=== PATIENT | female | born 1945 | race Caucasian/White ===

== ENCOUNTER 2022-02-01 08:41 | Emergency (ER) | payer MEDICARE, BC, SELFPAY ==
--- NOTE | ~2022-02-01 | CT_ITS ---
EXAMINATION: CT abdomen pelvis w con DATE: 02/01/2022 09:46 INDICATION: Left upper quadrant abdominal pain, nausea. Recent bile duct stent. TECHNIQUE: Computed tomography (CT) of the abdomen and pelvis was performed with 100 CC Omnipaque 300 intravenous contrast. Automated exposure control and iterative reconstruction technique were employe d. Exam dose: 405.04 mGy-cm total exam DLP. COMPARISON: None. FINDINGS: There is bibasilar discoid atelectasis//or scarring. Elevation of the right diaphragm. Cardiomegaly. No pericardial effusion. Small bilateral pleural effusions. Occasional hepatic and numerous splenic calcified granulomas consistent with old granulomatous diseas e. There is pneumobilia. Status post cholecystectomy. No hepatic, splenic, pancreatic or adrenal space-occupying mass lesion is detected. Bile duct and pancreatic duct stents are noted. There is peripancreatic fluid and fat soft tissue infiltration suggesting pancreatitis. 9 mm right renal cyst. Parapelvic left renal cyst. No urinary tract calculus or hydroureteronephrosis is evident. The uterus, adnexal areas and urinary bladder are essentially unremarkable although some what obscured by streak artifact from right hip replacement. There is a pigtail catheter in the subcutaneous soft tissues in the right inguinal area, immediately anterior to a nonspecific approximately 2.4 x 4 cm right inguinal fluid collection. Differential diag nosis includes hematoma, seroma, abscess. Pseudoaneurysm is also a consideration. Normal appendix. Diverticulosis of the sigmoid colon; no evidence of diverticulitis. No bowel obstruc tion, bowel wall thickening, pneumatosis or intraperitoneal free air is evident. There is atherosclerotic calcification but normal caliber of the abdominal aorta and iliac arteries. No intraperitoneal or retroperitoneal or pelvic mass lesion or adenopathy or ascites. Moderately severe degenerative disc disease at L2-3. Severe degenerative disc disease and mild anterolisthesis at L4-5. Moderately severe degenerative disc disease at L5-S1. Osteopenia. No suspicious osteolytic or osteoblastic lesions are identified. Status post right total hip arthroplasty. Left hip osteoarthritis. IMPRESSION: Status post cardiac valve replacement Cardiomegaly Small bilateral pleural effusions Status post cholecystectomy. Bile ducts and pancreatic duct stents Pneumobilia Renal cysts Diverticulosis of the sigmoid colon Pigtail catheter in right inguinal subcutaneous fat, immediately anterior to a nonspecific approximat mariama 2.4 x 4 summary right inguinal fluid collection Reviewed, dictated and finalized at [facility]. Reviewed, dictated and finalized at location B. IMPRESSION: Status post cardiac valve replacement Cardiomegaly Small bilateral pleural effusions Status post cholecystectomy. Bile ducts and pancreatic duct stents Pneumobilia Renal cysts Diverticulosis of the sigmoid colon Pigtail catheter in right inguinal subcutaneous fat, immediately anterior to a nonspecific approximately 2.4 x 4 summary right inguinal fluid collection
--- NOTE | ~2022-02-01 | XR_ITS ---
XR chest 2V DATE: 02/01/2022 09:44 INDICATION: Shortness of breath. Heart valve replacement 4 weeks ago. TECHNIQUE: AP and lateral views COMPARISON: 03/13/2005 portable AP chest FINDINGS: Postoperative change of cardiac valve replacement. There are elevation of the right diaphragm and mild atelectasis or scarring in the right lower lung. The left lung appears clear. No pleural effusion or pulmonary vascular congestion or pneumothorax. Cardiomegaly. Aortic calcification and tortuosity. Diffuse osteopenia. Levoscoliosis of the upper thoracic spine and dextroscoliosis of the lower thoracic spine. IMPRESSION: Status post cardiac valve replacement Cardiomegaly Aortic atherosclerosis Moderate elevation right diaphragm Mild infiltrate, atelectasis or scarring in the right lower lung Reviewed, dictated and finalized at location B.
[2022-02-01 08:50] VITALS: BP 110/67; PULSE 108; RESP 30; TEMP 36.3; O2SAT 100
--- NOTE | 2022-02-01 08:56 | ECG_ITS ---
Measurements Intervals [place] Rate: 111 P: 79 KS: 151 QRS: -48 QRSD: 89 T: 105 QT: 336 QTc: 458 Interpretive Statements SINUS TACHYCARDIA ATRIAL AND VENTRICULAR PREMATURE COMPLEXES LEFT ANTERIOR FASCICULAR BLOCK BORDERLINE ST-T WAVE ABNORMALITY- ANTEROLAT/HIGH LAT LEADS BASELINE ARTIFACT- I, II, III ABNORMAL ECG Electronically Signed On 02-01-2022 9:07:27 CDT by Lalo Musa D.O.
[2022-02-01 09:14] LABS: Basophils Percent Auto 0.1 % (0.2-1.2); Eosinophils Percent Auto 0.4 % (0-4.4); Hematocrit 33.3 % (37.0-47.0); Hemoglobin 10.2 g/dL (12.0-15.0); Immature Granulocyte Absolute 0.04 K/mm3 (0.00-0.031); Immature Granulocyte Percent A 0.5 % (0-0.5); Lymphocytes Absolute Auto 0.95 K/mm3 (0.9-3.2); Lymphocytes Percent Auto 12.7 % (18.3-44.2); Mean Corpuscular HGB Conc 30.6 g/dl (32-36); Mean Corpuscular Hemoglobin 29.8 pg (26-34); Mean Corpuscular Volume 97.4 fl (80-100); Mean Platelet Volume 9.6 fl (7.4-10.4); Monocytes Absolute Auto 0.8 K/mm3 (0.1-0.6); Monocytes Percent Auto 10.7 % (2.6-8.5); Neutrophils Absolute Auto 5.7 K/mm3 (1.3-6.7); Neutrophils Percent Auto 75.6 % (45.5-73.1); Platelet Count Result 372 k/mm3 (150-375); Red Blood Count 3.42 M/mm3 (4.2-5.4); Red Cell Distribution Width 17.1 % (11.5-14.5); White Blood Count 7.5 K/mm3 (4.5-10.0)
[2022-02-01 09:24] LABS: Alanine Aminotransferase 19 U/L (6-35); Albumin Level 4.1 g/dL (3.5-5.1); Alkaline Phosphatase 256 U/L (38-126); Anion Gap 7 mmol/L (8-16); Aspartate Amino Transferase 41 U/L (14-36); Bilirubin,Total 0.4 mg/dL (0.2-1.3); Blood Urea Nitrogen 25 mg/dL (7-17); Calcium 9.5 mg/dL (8.4-10.2); Carbon Dioxide 28 mmol/L (22-30); Chloride 102 mmol/L (98-107); Estimated CRCL calculation 39 ml/min; Estimated Glomerular Filt Rate 54; Glucose 97 mg/dL (65-110); Lipase 144 U/L (23-300); Potassium 4.5 mmol/L (3.4-5.0); Sodium 137 mmol/L (137-145)
[2022-02-01 09:31] VITALS: BP 104/81; PULSE 106; RESP 34; O2SAT 100
--- NOTE | 2022-02-01 10:00 | PC.NURSE ---
Pt states I went to the bathroom right before i came so i can't go
[2022-02-01 10:45] VITALS: BP 105/87; PULSE 105; RESP 40; O2SAT 100
[2022-02-01] MEDS: ONDANSETRON INJ 4 MG/2 ML VIAL IV PUSH (11:17)
--- NOTE | 2022-02-01 11:43 | PC.NURSE ---
Per GEOVANNY Gagnon, no urine specimen needed.
--- NOTE | 2022-02-01 12:19 | ED.ABDPAIN ---
HPI - Abdominal Pain General Chief Complaint: Abdominal Pain Stated Complaint: nausea, abd pain Time Seen by Provider: 02/01/22 08:45 Source: patient and family Mode of arrival: ambulatory Limitations: no limitations History of Present Illness HPI narrative: 76-year-old with a history of hypertension, s/p mitral valve replacement, maze procedure for AF done recently at [facility] also developed obstructing gallstone for which she had biliary stent placed here with complaints of left upper quadrant pain associated with nausea. She states that she has shortness of breath for a long time however since surgery her breathing is little worse. Patient states that she had vocal cord paralysis after the procedure since then she feels little more short of breath. She denied any chest pain. No history of fever or chills. Daughter states that this pain started at about 4:00 this morning. Patient daughter states that they did not want to go to [place] emergency room as the wait is too long. She wanted to know what could be the cause of her left upper quadrant pain. She also states that she is scheduled to see her biliary surgeon this coming Tuesday for stent removal. MD elicited complaint: abdominal pain Pertinent past history: none Onset (ago): hour(s) (6) Location: LUQ Severity: moderate Quality: aching Radiation: LUQ Migration to: no migration Exacerbating factors: nothing Relieving factors: nothing Associated symptoms: denies other symptoms Related Data Home Medications Medication Instructions Recorded Confirmed apixaban 5 mg PO BID 01/12/22 01/12/22 aspirin 81 mg PO DAILY 01/12/22 01/12/22 atorvastatin 40 mg PO DAILY 01/12/22 01/12/22 desvenlafaxine 100 mg PO DAILY 01/12/22 01/12/22 docusate sodium [Colace] 100 mg PO DAILY PRN 01/12/22 01/12/22 melatonin 9 mg PO HS 01/12/22 01/12/22 thyroid (pork) [[place] Thyroid] 90 mg PO DAILY 01/12/22 01/12/22 Allergies Allergy/AdvReac Type Severity Reaction Status Date / Time No Known Allergies Allergy Mild Unverified 04/28/12 08:22 Review of Systems Review of Systems: All systems reviewed & are unremarkable except as noted in HPI and below Constitutional: Constitutional: Reports no additional constitutional complaints Eyes: Eyes: Reports no additional eye complaints ENT: Reports system reviewed and no additional complaints, except as documented Respiratory: Respiratory: Reports no additional respiratory complaints Gastrointestinal: Gastrointestinal: Reports as per HPI Musculoskeletal: Musculoskeletal: Reports no additional musculoskeletal complaints Neurologic: Reports system reviewed and no additional complaints, except as documented PMFSH Past Medical History Medical History Acute blood loss as cause of postoperative anemia Atrial fibrillation Brain aneurysm Brain TIA Chronic hypotension Depression Encephalopathy History of subarachnoid hemorrhage Hyperkalemia Hyperlipidemia Hypertension Mitral regurgitation and aortic stenosis Peripheral artery disease Surgical History Surgical History H/O maze procedure Mitral valve replaced Family History Family History Father Acute myocardial infarction Cerebrovascular accident Chronic obstructive pulmonary disease Hypertension Sibling Acute myocardial infarction Cerebrovascular accident Hypertension Mother Chronic obstructive pulmonary disease Gastric cancer Social History Social History Social History: she is a retired nurse from [employer]. She currently lives in [place] with her . She will return to her daughter's home in [facility] and eventually transition back to [place] Smoking status: Former smoker Exam Narrative: GENERAL: Well-appearing,thin ,anxious
[2022-02-01 12:32] VITALS: BP 123/78; PULSE 107; RESP 18; O2SAT 96
== END 2022-02-01 12:35 | disposition home or self-care (01) ==
PROVIDERS: Emergency Provider Family Medicine
DX: R10.12 Left upper quadrant pain (principal); I10 Essential (primary) hypertension; I48.91 Unspecified atrial fibrillation; E78.5 Hyperlipidemia, unspecified; I08.0 Rheumatic disorders of both mitral and aortic valves; I73.9 Peripheral vascular disease, unspecified; Z95.2 Presence of prosthetic heart valve; Z86.73 Personal history of transient ischemic attack (TIA), and cerebral infarction without residual deficits; Z79.01 Long term (current) use of anticoagulants; Z79.82 Long term (current) use of aspirin; Z87.891 Personal history of nicotine dependence; I51.7 Cardiomegaly; N28.1 Cyst of kidney, acquired; K57.30 Diverticulosis of large intestine without perforation or abscess without bleeding; I70.0 Atherosclerosis of aorta
CPT/HCPCS: 36415; 71046; 74177; 80053; 83690; 85025; 93005; 96374; 99284; J2405; Q9967

== ENCOUNTER 2022-02-25 12:30 | Outpatient (RCR) | payer MEDICARE, BC, SELFPAY ==
--- NOTE | 2022-01-26 13:49 | STOPEVAL ---
Thank you for referring La Nena Clark to [facility].? The patient is scheduled to be seen for therapy? 2x/week for 4 weeks. Please review, sign, date and return this plan of care JUAN JOSÉ. I agree with and certify that the following plan of care is medically necessary. Referring Physician Date Attending Provider: Elva Anthony DO Referring Provider: Elva Anthony DO Therapy Assessment Status Assessment Status Assessment Status Evaluation Outpatient Past Medical History Past Medical History Source of Past Medical History Patient,Family/Significant Other Neurological History Hx Neurological Disorders No Significant History Cardiovascular History Hx Valve Replacement Yes Respiratory History Hx Other Respiratory Disorders Yes: Short, shallow breaths Genitourinary History Hx Other Genitourinary Disorders Yes: s/p bile duct surgery Musculoskeletal History Hx Crutches or Walker Use Yes Query Text:If Yes, Enter Crutches, Walker, or Both in the Comment Evaluation Information Problem Diagnosis Left side vocal cord paralysis Onset 12/28/21 Cause Intubation Subjective Information Daughter, Blanquita, reported that Query Text:As Reported By Patient/ patient underwent mitral Family valve replacement and was intubated during the surgery however when she was extubated, patient was found to have difficulty voicing and this was determined to be caused by a paralyzed vocal cord. After extubation, she began to have clear liquid diet, eventually graduating to solid foods however she must continue to have nectar thick liquids to prevent penetration/aspiration. Patient's biggest complaint today is catching her breath. She states that her breathing is shallow and rapid and daughter reported that this has not improved over time. Daughter stated that her heart is working well and that her lungs are clear. She reported that patient's sleeping has been improving upon discharge from hospital/rehab. Daughter reports that patient's nurse practitioner will be following
--- NOTE | 2022-01-26 14:42 | OTOPEVAL ---
OCCUPATIONAL THERAPY INITIAL EVALUATION REPORT 01/26/22 Thank you for referring La Nena Clark to [facility].? The patient is scheduled to be seen for therapy? 2x/week for 4 weeks. Please review, sign, date and return this plan of care JUAN JOSÉ. I agree with and certify that the following plan of care is medically necessary. Referring Physician Date Referring Provider: Elva Anthony DO *OT Outpatient Evaluation Start: 01/26/22 13:30 Outpatient Past Medical History Past Medical History Source of Past Medical History Family/Significant Other Neurological History Hx Transient Ischemic Attacks (TIA) Yes: no residual Hx Other Neurological Disorders Yes: brain aneurysm s/p stenting and coil, fall 2020 Cardiovascular History Hx Atrial Fibrillation Yes: s/p maze procedure Hx Peripheral Vascular Disease Yes Hx Other Cardiac Disorders Yes: mitral valve regurgitation, hypotension Psychosocial History Hx Depression Yes Evaluation Information Diagnosis Presence of prosthetic heart valve Onset 12/28/21 Subjective Information Mitral valve replacement on Text:As Reported By Patient/ 01/15, 11 hour surgery. She was Family in the ICU x1 week, step down unit x1 week, and discharged to acute rehab 1.5 weeks. Her daughter is with her today and provides the history. She states she has been very immobile x7 weeks and is ready to get moving again. She is staying with her daughter right now. She is from [place], flew home to get the surgery at [facility]. Goal would be to regain independence to get back home in [place] with her . Patient reports that she is most limited by her endurance and states that she gets short of breath easily. She is motivated to get back to being independent with ADLs and cooking. Prior Level of Function Activity Level (Last 3 Months) Occupation Retired RN Hand Dominance Right Activity of Daily Living Ability Needs Some Help Indoor/Home Mobility Independent Stairs Ability Needs Some Help Home Setting Home Type House Environmental Barriers Railing, None
--- NOTE | 2022-02-01 09:58 | PCOTNOTE ---
Patient's daughter called & cancelled scheduled appointment this date due to patient not feeling well and she may be taking her to the hospital.
--- NOTE | 2022-02-03 14:07 | PTOPEVAL ---
PHYSICAL THERAPY INITIAL EVALUATION. Thank you for referring La Nena Clark to [facility].? The patient is scheduled to be seen for therapy? 2x/week for 4 weeks. Please review, sign, date and return this plan of care JUAN JOSÉ. I agree with and certify that the following plan of care is medically necessary. Referring Physician Date Attending Provider: Elva Anthony DO *PT Outpatient Evaluation Start: 02/03/22 Evaluation Information Diagnosis Presence of prosthetic heart valve Onset 12/28/21 Subjective Information Mitral valve replacement on Text:As Reported By Patient/ 01/15, 11 hour surgery. She was Family in the ICU x1 week, step down unit x1 week, and discharged to acute rehab 1.5 weeks. Her daughter is with her today and provides the history. She states she has been very immobile x7 weeks and is ready to get moving again. She is staying with her daughter right now. She is from [facility] to get the surgery at [place]. Goal would be to regain independence to get back home in [place] with her . Patient reports that she is most limited by her endurance and states that she gets short of breath easily. Pt states she used to do bike aerobics 3x/wk, ride a tricycle, and walk her dog daily. Pain Assessment Pain Score Pain Score 0: Self Report Lower Extremity Range of Motion General Lower Extremity Range of Motion WFL/Left,WFL/Right Lower Extremity Muscle Strength Testing Gross Lower Extremity Strength Colleen hip flexion 4/5 colleen hip ext 3/5 colleen hip abd 2-/5 colleen knee flex/extension 4+/5 - unable to perform sit<>stand without UE support Balance Assessment Zambrano Balance Assessment ZAMBRANO Balance Evaluation Total Score ( Time Up Go (TUG) Timed Up and Go Test (TUG) (Seconds) 19 Assistive Devices Walker, Wheeled 5 Time Sit to Stand Time in Seconds 14 5 Time Sit to Stand Comments with use of UEs, unable to Query Text:Normative Data: If Greater complete without UEs Gait Assessment Ambulation Assistive Devices Walker,
--- NOTE | 2022-02-12 11:55 | PCOTNOTE ---
Patient called & cancelled scheduled appointment this date due to being sick.
--- NOTE | 2022-02-12 14:26 | PCPTNOTE ---
Patient called & cancelled scheduled appointment this date due to not feeling well.
--- NOTE | 2022-02-15 15:47 | OTOPEVAL ---
OT DISCHARGE NOTE 02/15/22 Patient presents for OT re-evaluation this date. She was initially evaluated by OT on 01/26/22 and she unfortunately was unable to attend any OT follow up appointments due to cancelling. She presents today with much improved functional UE strength, endurance, and independence. At this time she reports she no longer requires OT services. Discharging today. Thank you for referring La Nena Clark to [facility]. Please review, sign, date and return this plan of care JUAN JOSÉ. I agree with and certify that the following plan of care is medically necessary. Referring Physician Date Referring Provider: Elva Anthony, DO Re-Evaluation Information Problem Diagnosis Presence of prosthetic heart valve Onset 12/28/21 Subjective Information Patient reports she has Query Text:As Reported By Patient/ progressed to being Family independent with ADLs. She has done some cooking at her daughter's house. She reports she still needs to sit for rests breaks frequently, but overall feels like her endurance has improved. She is going back home to [place] next week, 02/26/22. She presents today stating that she no longer has any OT needs . Medical history: Mitral valve replacement on 12/28/21, 11 hour surgery. She was in the ICU x1 week, step down unit x1 week, and discharged to acute rehab 1.5 weeks. Her daughter is with her today and provides the history. She states she has been very immobile x7 weeks and is ready to get moving again. She is staying with her daughter right now. She is from [facility] home to get the surgery at [place]. Goal would be to regain independence to get back home in [place] with her . Pain Assessment Timing of Pain Assessment Timing of Pain Assessment Re-assessment Self Report Self Report Pain Level 0 Pain Score Pain Score 0: Self Report Upper Extremity Range of Motion General Upper Extremity Range of Motion Reason Not Measured WNL/Left,WNL/Right Upper Extremity Muscle Strength Testing Scapular/Shoulder Bilat
--- NOTE | 2022-02-18 14:43 | STOPEVAL ---
SPEECH THERAPY DISCHARGE SUMMARY Thank you for referring La Nena Clark to [facility].? I agree with discharge at this time. Referring Physician Date Attending Provider: Elva Anthony DO Referring Provider: Elva Anthony DO Therapy Assessment Status Assessment Status Assessment Status Discharge Pain Assessment Timing of Pain Assessment Timing of Pain Assessment Pre-Treatment Self Report Self Report Pain Level 0 Pain Score Pain Score 0: Self Report ST Clinical Summary Clinical Summary ST Clinical Summary This patient was seen for a Speech Therapy evaluation and three treatment sessions focusing on respiration/ phonation coordination, laryngeal adduction, swallowing strengthening exercises, and safe swallowing techniques. Patient initially exhibited significant difficulty breathing, with shallow inhalations/ exhalations noted however when she returned for the next session, her breathing was significantly improved and vocal quality had also improved. Additionally, she had been instructed to turn head to the left and tuck chin in order to swallow thin liquids. At time of discharge, she noted she had not been doing the head turn/chin tuck and she had not experienced any signs/symptoms of aspiration. Patient performed all exercises well and was discharged with goals achieved. She voices understanding that she knows she needs to continue to practice exercises upon discharge. Patient performed as follows on goals: 1. Tolerate thin liquids independently no aspiration as evidenced by repeat Modified Barium Swallow study. MET. 2. Patient will develop complia
--- NOTE | 2022-02-23 12:47 | PCPTNOTE ---
Patient called & cancelled scheduled appointment this date due to having MD appointment.
--- NOTE | 2022-02-25 13:24 | PTOPEVAL ---
PHYSICAL THERAPY PROGRESS REPORT AND DISCHARGE SUMMARY. Thank you for referring La Nena Clark to [facility].? The patient is to be discharged from skilled physical therapy services at this time. Please review, sign, date and return this plan of care JUAN JOSÉ. I agree with and certify that the following plan of care is medically necessary. Referring Physician Date Attending Provider: Elva Anthony, Evaluation Information Diagnosis Presence of prosthetic heart valve Onset 12/28/21 Subjective Information Pt states overall her Query Text:As Reported By Patient/ strength has improved but has Family not progressed recently as she has not been doing her exercises regularly. She states her energy she has improved, she does not feel the need to take a nap anymore . Pt states she has been walking continuously, daily. Pain Assessment Pain Score 0: Self Report Lower Extremity Range of Motion General Lower Extremity Range of Motion WFL/Left,WFL/Right Lower Extremity Muscle Strength Testing General Lower Extremity Strength WFL/Left,WFL/Right Gross Lower Extremity Strength Colleen hip flexion 4/5 colleen hip ext 4/5 - able to complete 10 glute bridges to max height colleen hip abd 2/5 colleen knee flex/extension 4+/5 - unable to perform sit<>stand without UE support Balance Assessment Zambrano Balance Assessment ZAMBRANO Balance Evaluation Total Score 48/56 Comments L single leg stance: >3 sec R single leg stance: >3 sec Time Up Go (TUG) Timed Up and Go Test (TUG) (Seconds) 10 Assistive Devices Walker, Wheeled Comments Initially: 19s with WW 02/25/22: 10s without AD 5 Time Sit to Stand Time in Seconds 10 5 Time Sit to Stand Comments Initially: 14s with use of UEs Query Text:Normative Data: If Greater , unable to complete without Than 15 Seconds, 74% Increase Risk for UEs Recurrent Falls 02/25/22: 10s with use of UEs, able to complete 2 sit<>stands without UEs Gait Assessment Ambulation Assistive Devices None Gait Pattern Observed Trunk Lateral Lean - Right Other Gait Observations flat foot contact 2 Minute Walk Total Distance Walked (feet) 395 2 Minute Walk Gait Speed Score 3.29 Number of Breaks Required 0 2 Minute Walk Test Comments I
== END 2022-02-26 09:46 | disposition home or self-care (01) ==
LOC: ANHPT 12:30
PROVIDERS: Referring Provider Physical Medicine & Rehabilitation; Visit Provider Physical Medicine & Rehabilitation
DX: Z95.2 Presence of prosthetic heart valve (principal); R13.10 Dysphagia, unspecified; R49.0 Dysphonia
CPT/HCPCS: 92507; 92524; 92526; 92610; 97110; 97112; 97116; 97161; 97166; 97530